=== PATIENT | male | born 1995 | race Caucasian/White ===

== ENCOUNTER 2020-12-06 11:28 | Emergency (ER) | payer OTHER ==
[2020-12-06 11:53] VITALS: BP 144/74; PULSE 72; TEMP 97.9; BMI 35.2
== END 2020-12-06 13:33 | disposition home or self-care (01) ==
LOC: JER 11:28
DX: S39.011A Strain of muscle, fascia and tendon of abdomen, initial encounter (principal)
CPT/HCPCS: 99281-25

== ENCOUNTER 2021-04-11 11:01 | Emergency (ER) | payer OTHER ==
[2021-04-11 11:19] VITALS: BP 130/75; PULSE 64; TEMP 98.6; BMI 33.9
[2021-04-11] MEDS ORDERED: KETOROLAC TROMETHAMINE 60 MG/2 ML VIAL IM ONE (12:03)
[2021-04-11] MEDS ORDERED: DIPHTH,PERTUSS(ACELL),TET 0.5 ML DISP.SYRIN IM ONE ×2 (12:04→12:05)
[2021-04-11] MEDS ORDERED: KETOROLAC TROMETHAMINE 60 MG/2 ML VIAL ONE (12:05)
== END 2021-04-11 12:37 | disposition home or self-care (01) ==
LOC: JERFT 11:01
PROC: 3E0234Z Introduction of Serum, Toxoid and Vaccine into Muscle, Percutaneous Approach (ICD-10-PCS; principal; 2021-04-11)
PROC: 3E0333Z Introduction of Anti-inflammatory into Peripheral Vein, Percutaneous Approach (ICD-10-PCS; 2021-04-11)
DX: M54.5 Low back pain (principal); Z23 Encounter for immunization
CPT/HCPCS: 90471; 90715; 99284-25